=== PATIENT | male | born 1975 | race Two or more races ===

== ENCOUNTER → 2025-05-15 | Outpatient (CLI) | payer BC, SELFPAY ==
--- NOTE | 2025-05-15 13:30 | XR_ITS ---
Examination: MRI abdomen with intravenous contrast. MRI abdomen without intravenous contrast. Date and time of exam: May 15, 2025, 1403 hours,. INDICATIONS: Liver lesion on CT ultrasound examination outside studies November, diagnosis hereditary hemochromatosis Technique: Multiple axial, sagittal and coronal sections of the abdomen obtained. Transverse images, TR 6020, TE 107. T1 weighted transverse images, TR 582, TE 9.5. T2-weighted sagittal images, TR 4000, TE 105. T2-weighted sagittal images, TR 4000, TE 5. Coronal images, TR 4210, TE 107. Axial and coronal images are obtained post 20 cc intravenous injection, gadolinium. Findings: Hepatomegaly 17 cm 23 mm lesion right lobe of the liver on the T2-weighted images with increased signal There is diffuse enhancement of this lesion on the postcontrast images, nodular peripheral enhancement Spleen is not enlarged No pancreatic mass Normal common hepatic common bile duct No gallstones No ascites Aorta normal size No hydronephrosis IMPRESSION: 23 mm enhancing right lobe liver lesion with peripheral nodular enhancement suggestive of hemangioma Recommend hepatic sonography to further assess this lesion
== END | disposition home or self-care (01) ==
LOC: SMRI 13:12
PROVIDERS: PCP Internal Medicine; Referring Provider Internal Medicine Hematology & Oncology; Visit Provider Internal Medicine Hematology & Oncology
DX: K76.9 Liver disease, unspecified (principal)
CPT/HCPCS: 74183; A9577